=== PATIENT | male | born 2000 | race African-American/Black ===

== ENCOUNTER 2025-09-30 00:17 | Emergency (ER) | payer SELFPAY ==
[~2025-09-30] VITALS: Ht 177.8 cm; Wt 90.0 kg
[2025-09-30 00:21] VITALS: BP 133/98; PULSE 104; RESP 18; TEMP 98.5; O2SAT 99
== END 2025-09-30 01:45 | disposition left against medical advice (07) ==
LOC: ER 00:29 → EDSEX 00:29 → ER 01:45
DX: R46.1 Bizarre personal appearance (principal)
CPT/HCPCS: 99283